=== PATIENT | female | born 1995 | race Caucasian/White ===

== ENCOUNTER → 2017-03-20 21:34 | Emergency (ER) | payer MEDICAID ==
--- NOTE | 2017-03-21 07:34 | RAD ---
HISTORY: Right ankle injury COMPARISONS: None VIEWS: 3, Frontal, lateral, and oblique views of the right ankle FINDINGS: BONE DENSITY: Normal. BONES: There is no displaced fracture. JOINTS: There is no arthropathy. ALIGNMENT: There is no dislocation. SOFT TISSUES: Unremarkable. OTHER FINDINGS: None. IMPRESSION: NO ACUTE OSSEOUS INJURY. IF SYMPTOMS PERSIST, RECOMMEND REPEAT IMAGING.
== END | disposition home or self-care (01) ==
LOC: UCCORT 21:34
DX: S93.401A Sprain of unspecified ligament of right ankle, initial encounter (principal); X58.XXXA Exposure to other specified factors, initial encounter; Y93.9 Activity, unspecified; Y92.9 Unspecified place or not applicable; Y99.9 Unspecified external cause status; Z32.02 Encounter for pregnancy test, result negative
CPT/HCPCS: 84702

== ENCOUNTER 2017-04-27 15:16 | Emergency (ER) | payer OTHER ==
[2017-04-27 15:29] VITALS: BP 108/67
--- NOTE | 2017-04-27 15:34 | UC ---
Respiratory Complaint HPI - HPI Summary HPI Summary: 22 year old female presents with cough and wheezing. - History of Current Complaint Chief Complaint: UCRespiratory Stated Complaint: COUGH Time Seen by Provider: 04/27/17 15:33 Hx Obtained From: Patient Hx Last Menstrual Period: 04/21/17 Onset/Duration: Sudden Onset Severity Initially: Moderate Severity Currently: Moderate - Allergies/Home Medications Allergies/Adverse Reactions: Allergies Allergy/AdvReac Type Severity Reaction Status Date / Time [place] Oil [From [place]] Allergy Hives Verified 04/27/17 15:29 Eggs or Egg-derived Products Allergy See Comment Verified 04/27/17 15:29 Gluten Meal Allergy Unknown Verified 04/27/17 15:29 Reaction Details Peanut Oil Allergy Hives Verified 04/27/17 15:29 Soy Allergy Allergy Unknown Verified 04/27/17 15:29 Reaction Details PMH/Surg Hx/FS Hx/Imm Hx Previously Healthy: Yes - Surgical History Surgical History: Yes Surgery Procedure, Year, and Place: FX R ELBOW SX REPAIR, 09/2014 - Family History Known Family History: Positive: None - Social History Alcohol Use: None Substance Use Type: None Smoking Status (MU): Never Smoked Tobacco Household Exposure Type: Cigarettes - Immunization History Vaccination Up to Date: Yes Review of Systems Constitutional: Negative Skin: Negative Eyes: Negative ENT: Sore Throat, Nasal Discharge, Sinus Congestion, Sinus Pain/Tenderness Respiratory: Cough Cardiovascular: Negative Gastrointestinal: Negative Genitourinary: Negative Motor: Negative Neurovascular: Negative Musculoskeletal: Negative Neurological: Negative Psychological: Negative All Other Systems Reviewed And Are Negative: Yes Physical Exam Triage Information Reviewed: Yes Vital Signs: Initial Vital Signs Temp 37.2 C 04/27/17 15:26 Pulse 83 04/27/17 15:26 Resp 16 04/27/17 15:26 BP 108/67 04/27/17 15:26 Pulse Ox 100 04/27/17 15:26 Vital Signs Reviewed: Yes Eye Exam: Normal ENT Exam: Normal Dental Exam: Normal Neck exam: Normal Neck: Positive: 1 Respiratory: Positive: Rhonchi, Wheezing Cardiovascular Exam: Normal Abdominal Exam: Normal Musculoskeletal Exam: Normal Neurological Exam: Normal Psychological Exam: Normal Skin Exam: Normal UC Diagnostic Evaluation - Laboratory O2 Sat by Pulse Oximetry: 100 Respiratory Course/Dx - Differential Dx/Diagnosis Provider Diagnoses: cough. wheezing Discharge - Discharge Plan Condition: Stable Disposition: HOME Prescriptions: Albuterol HFA INHALER* [Ventolin HFA Inhaler*] 1 puff INH Q6H PRN #1 mdi PRN Reason: Wheezing Azithromyxin NAZARIO (NF) [Z-Nazario (Zithromax) 250 mg tabs #6] 2 tab PO .TODAY, THEN 1 DAILY #6 tab Guaifenesin-Codeine [Cheratussin AC] 1 teasp PO Q8H PRN #120 ml MDD 15 ml PRN Reason: Cough Methylprednisolone [Medrol Dosepak 4 MG*] 4 mg PO .SEE NAZARIO INSTRUCTION #21 tab Patient Education Materials: Acute Cough (ED), Wheezing (ED) Forms: *Work Release Referrals: RADHA Stevens [Primary Care Provider] -
== END 2017-04-27 16:43 | disposition home or self-care (01) ==
LOC: UCCORT 15:16
DX: R05 Cough (principal); R06.2 Wheezing; Z77.22 Contact with and (suspected) exposure to environmental tobacco smoke (acute) (chronic)
CPT/HCPCS: 87502; 99212; G0463

== ENCOUNTER 2018-04-17 15:14 | Emergency (ER) | payer OTHER ==
[2018-04-17 16:28] VITALS: BP 116/68
--- NOTE | 2018-04-17 16:50 | ED ---
Respiratory - HPI Summary HPI Summary: pt presents for evaluation of her headache and body aches. she states that she has been ill since wednesday. she complains of sinus congestion. she denies any sick contact. she is here in the UC with her cousin. she has not taken any tylenol or motrin - History of Current Complaint Chief Complaint: UCRespiratory Stated Complaint: FEVER/BODY ACHES Hx Obtained From: Patient, Family/Electronic Communications Technician Onset/Duration: Gradual Onset Initial Severity: Mild Current Severity: Mild Pain Intensity: 7 Sputum Amount: None Alleviating Factor(s): Nothing - Allergy/Home Medications Allergies/Adverse Reactions: Allergies Allergy/AdvReac Type Severity Reaction Status Date / Time corn Allergy Unknown Hives Verified 04/17/18 16:20 peanut oil Allergy Unknown Hives Verified 04/17/18 16:20 soy Allergy Unknown Hives Verified 04/17/18 16:20 gluten Allergy Hives Verified 04/17/18 16:20 PMH/Surg Hx/FS Hx/Imm Hx Previously Healthy: Yes - Surgical History Surgery Procedure, Year, and Place: FX R ELBOW SX REPAIR, 09/2014 Infectious Disease History: No Infectious Disease History: Denies: Traveled Outside the [place] in Last 30 Days - Family History Known Family History: Positive: None - Social History Alcohol Use: None Substance Use Type: Reports: None Smoking Status (MU): Never Smoked Tobacco Review of Systems Constitutional: Negative Negative: Fever Eyes: Negative ENT: Negative Cardiovascular: Negative Respiratory: Negative Gastrointestinal: Negative Genitourinary: Negative Positive: Arthralgia Skin: Negative Positive: Headache. Negative: Weakness, Paresthesia, Numbness, Syncope Psychological: Normal All Other Systems Reviewed And Are Negative: No Physical Exam Triage Information Reviewed: Yes Vital Signs On Initial Exam: Initial Vitals Temp Pulse Resp BP Pulse Ox 99.2 F 102 21 116/68 99 04/17/18 16:21 04/17/18 16:21 04/17/18 16:21 04/17/18 16:21 04/17/18 16:21 Vital Signs Reviewed: Yes Appearance: Positive: Well-Appearing, No Pain Distress, Well-Nourished Skin: Positive: Warm, Dry Eyes: Positive: Normal, EOMI, WESLEY ENT: Positive: Normal ENT inspection, Hearing grossly normal, Pharynx normal Neck: Positive: Supple, Nontender Respiratory/Lung Sounds: Positive: Clear to Auscultation, Breath Sounds Present Cardiovascular: Positive: Normal, RRR Abdomen Description: Positive: Nontender, Soft Bowel Sounds: Positive: Present Musculoskeletal: Positive: Normal, Strength/ROM Intact Neurological: Positive: Normal, Sensory/Motor Intact, Alert, Oriented to Person Place, Time, CN Intact II-III Psychiatric: Positive: Normal AVPU Assessment: Alert Diagnostics - Vital Signs Vital Signs Temp Pulse Resp BP Pulse Ox 04/17/18 16:21 99.2 F 102 21 116/68 99 - Laboratory Lab Results: Lab Results 04/17/18 Range/Units 16:37 POC Ur Test Negative (Negative) Lab Statement: Any lab studies that have been ordered have been reviewed, and results considered in the medical decision making process. Disposition - Course Course Of Treatment: pt given tylenol, motrin and zofran. test negative. pt encouraged to f/u with pcp regarding what appears to be an enlarged thyroid. - Diagnoses Provider Diagnoses: Viral syndrome Discharge - Sign-Out/Discharge Documenting (check all that apply): Patient Departure All imaging exams completed and their final reports reviewed: No Studies - Discharge Plan Condition: Stable Disposition: HOME Patient Education Materials: Viral Syndrome (ED) Referrals: No Primary Care Phys,NOPCP [Primary Care Provider] - [facility] [Provider Group] Additional Instructions: Please follow up with your primary care physician this week. Please also have your primary care physician check your thyroid. your thyroid is silghtly enlarged. return if worse or any new symptoms. Take tylenol and motrin for headache, pain, or fever. - Billing Disposition and Condition Condition: STABLE Disposition: Home
[2018-04-17] MEDS ORDERED: Ondansetron ODT TAB* 4 MG PO ONE (17:04)
[2018-04-17] MEDS ORDERED: Acetaminophen TAB* 325 MG PO ONE (17:04)
[2018-04-17] MEDS ORDERED: Ibuprofen TAB* 600 MG PO ONE (17:04)
== END 2018-04-17 17:24 | disposition home or self-care (01) ==
LOC: UCCORT 15:14
DX: B34.9 Viral infection, unspecified (principal); Z91.018 Allergy to other foods
CPT/HCPCS: 84702; 99212; A9270-GY; G0463

== ENCOUNTER 2018-11-10 20:14 | Emergency (ER) | payer MEDICAID, OTHER ==
[2018-11-10 20:39] VITALS: BP 112/70
--- NOTE | 2018-11-10 20:43 | UC ---
Throat Pain/Nasal Rory HPI - HPI Summary HPI Summary: 23 yo female with sore throat and otalgia x 2 days hurts to swallow no fever - History of Current Complaint Chief Complaint: UCGeneralIllness Stated Complaint: THROAT/EAR COMPLAINT Time Seen by Provider: 11/10/18 20:42 Hx Obtained From: Patient Hx Last Menstrual Period: irregular Onset/Duration: Gradual Onset Severity: Moderate Pain Intensity: 7 Pain Scale Used: 0-10 Numeric Cough: None Associated Signs & Symptoms: Negative: FB Sensation, Drooling, Wheezing, Hoarseness, Sinus Discomfort, Nasal Discharge, Fever, Vomiting, Rash - Epiglottits Risk Factors Epiglottis Risk Factors: Negative - Allergies/Home Medications Allergies/Adverse Reactions: Allergies Allergy/AdvReac Type Severity Reaction Status Date / Time corn Allergy Unknown Hives Verified 08/29/18 17:26 peanut oil Allergy Unknown Hives Verified 08/29/18 17:26 soy Allergy Unknown Hives Verified 08/29/18 17:26 gluten Allergy Hives Verified 08/29/18 17:26 PMH/Surg Hx/FS Hx/Imm Hx Previously Healthy: Yes - Surgical History Surgical History: Yes Surgery Procedure, Year, and Place: FX R ELBOW SX REPAIR, 09/2014 - Family History Known Family History: Positive: None - Pt denies FMHx Negative: Cardiac Disease, Hypertension, Diabetes - Social History Alcohol Use: None Substance Use Type: None Smoking Status (MU): Never Smoked Tobacco Household Exposure Type: Cigarettes - Immunization History Vaccination Up to Date: Yes Review of Systems All Other Systems Reviewed And Are Negative: Yes Constitutional: Positive: Negative Skin: Positive: Negative Eyes: Positive: Negative ENT: Positive: Sore Throat, Ear Ache Respiratory: Positive: Negative Cardiovascular: Positive: Negative Gastrointestinal: Positive: Negative Genitourinary: Positive: Negative Motor: Positive: Negative Neurovascular: Positive: Negative Musculoskeletal: Positive: Negative Neurological: Positive: Negative Psychological: Positive: Negative Physical Exam Triage Information Reviewed: Yes Appearance: Well-Appearing, No Pain Distress, Well-Nourished Vital Signs: Initial Vital Signs Temp 99.2 F 11/10/18 20:36 Pulse 85 11/10/18 20:36 Resp 20 11/10/18 20:36 BP 112/70 11/10/18 20:36 Pulse Ox 98 11/10/18 20:36 Vital Signs Reviewed: Yes Eyes: Positive: Conjunctiva Clear ENT: Positive: Hearing grossly normal, Tonsillar swelling, Uvula midline. Negative: Nasal congestion, Nasal drainage, Tonsillar exudate, Trismus, Muffled voice, Hoarse voice, Sinus tenderness Neck: Positive: Supple, Nontender, No Lymphadenopathy Respiratory: Positive: Lungs clear, Normal breath sounds, No respiratory distress, No accessory muscle use Cardiovascular: Positive: RRR, No Murmur Musculoskeletal: Positive: ROM Intact, No Edema Neurological: Positive: Alert Psychological Exam: Normal Skin Exam: Normal Diagnostics - Laboratory Lab Results: strep (-) Throat Pain/Nasal Course/Dx - Differential Dx/Diagnosis Provider Diagnosis: Acute tonsillitis Discharge - Sign-Out/Discharge Documenting (check all that apply): Patient Departure All imaging exams completed and their final reports reviewed: No Studies - Discharge Plan Condition: Stable Disposition: HOME Prescriptions: Cephalexin CAP* [Keflex CAP*] 500 mg PO BID #20 cap predniSONE [Prednisone 20 MG TAB] 60 mg PO DAILY #9 tab Patient Education Materials: Tonsillitis (ED) Referrals: RADHA Stevens [Primary Care Provider] - 4 Days (if not better) - Billing Disposition and Condition Condition: STABLE Disposition: Home
[2018-11-10] MEDS ORDERED: Cephalexin CAP* 500 MG PO ONE (21:10)
== END 2018-11-10 21:20 | disposition home or self-care (01) ==
LOC: UCCORT 20:14
DX: J03.90 Acute tonsillitis, unspecified (principal); Z91.09 Other allergy status, other than to drugs and biological substances; Z91.010 Allergy to peanuts; Z91.018 Allergy to other foods
CPT/HCPCS: 87651; 99212; A9270-GY; G0463

== ENCOUNTER 2018-11-19 12:43 | Emergency (ER) | payer OTHER ==
[2018-11-19 12:59] VITALS: BP 120/59
--- NOTE | 2018-11-19 13:12 | UC ---
Upper Extremity HPI - HPI Summary HPI Summary: 23-year-old female presents with complaints of right forearm pain after accidentally hitting her arm on a 2x4 board on her porch. Describes pain as sharp and states it radiates up her arm with any type of movement. She has taken acetaminophen this morning at approximately 6 AM with no relief in the pain. Denies any numbness or tingling. - History of Current Complaint Chief Complaint: UCUpperExtremity Stated Complaint: LEFT ARM INJURY Time Seen by Provider: 11/19/18 12:56 Hx Obtained From: Patient Hx Last Menstrual Period: unknown Pain Intensity: 8 - Allergies/Home Medications Allergies/Adverse Reactions: Allergies Allergy/AdvReac Type Severity Reaction Status Date / Time corn Allergy Unknown Hives Verified 08/29/18 17:26 peanut oil Allergy Unknown Hives Verified 08/29/18 17:26 soy Allergy Unknown Hives Verified 08/29/18 17:26 gluten Allergy Hives Verified 08/29/18 17:26 Home Medications: Home Medications NK [No Home Medications Reported] 11/19/18 [History Confirmed 11/19/18] PMH/Surg Hx/FS Hx/Imm Hx Previously Healthy: Yes - Denies significant PMH - Surgical History Surgical History: Yes Surgery Procedure, Year, and Place: FX R ELBOW SX REPAIR, 09/2014 - Family History Known Family History: Positive: Non-Contributory - Social History Occupation: Employed Full-time Lives: Alone Alcohol Use: None Substance Use Type: None Smoking Status (MU): Never Smoked Tobacco Household Exposure Type: Cigarettes - Immunization History Vaccination Up to Date: Yes Review of Systems All Other Systems Reviewed And Are Negative: Yes Constitutional: Positive: Negative Skin: Negative: Bruising Respiratory: Positive: Negative Cardiovascular: Positive: Negative Gastrointestinal: Positive: Negative Genitourinary: Positive: Negative Motor: Negative: Weakness Neurovascular: Negative: Decreased Sensation Musculoskeletal: Positive: Other: - See HPI Neurological: Positive: Negative Is Patient Immunocompromised?: No Physical Exam - Summary Physical Exam Summary: GENERAL APPEARANCE: Well developed, well nourished, alert and cooperative, and appears to be in no acute distress. CARDIAC: Normal S1 and S2. No S3, S4 or murmurs. Rhythm is regular. There is no peripheral edema, cyanosis or pallor. Extremities are warm and well perfused. Capillary refill is less than 2 seconds. Peripheral pulses intact. LUNGS: Clear to auscultation without rales, rhonchi, wheezing or diminished breath sounds. ABDOMEN: Positive bowel sounds. Soft, nondistended, nontender. No guarding or rebound. No masses or hepatosplenomegally. MUSKULOSKELETAL: Normal muscular development. Normal gait. EXTREMITIES: Reports of severe generalized tenderness of the left forearm with gentle palpation without gross deformity, ecchymosis, or edema. Circulation and sensation intact. SKIN: Skin normal color, texture and turgor with no lesions or eruptions. Triage Information Reviewed: Yes Vital Signs: Initial Vital Signs Temp 99 F 11/19/18 12:54 Pulse 89 11/19/18 12:54 Resp 16 11/19/18 12:54 BP 120/59 11/19/18 12:54 Pulse Ox 100 11/19/18 12:54 Vital Signs Reviewed: Yes Diagnostics - Radiology No standard instances Radiology Interpretation Completed By: Radiologist Summary of Radiographic Findings: Order Information: FOREARM LEFT 2 VWS. Accession Number: [id number]. CPT: 57681. INDICATION: Left forearm injury. TECHNIQUE: 2 views of the left forearm were obtained. FINDINGS: The bones are in normal alignment. No fracture is seen. IMPRESSION: NO EVIDENCE FOR FRACTURE. Upper Extremity Course/Dx - Course Course Of Treatment: 23-year-old female presents with complaints of right forearm pain after accidentally hitting her arm on a 2x4 board on her porch. Describes pain as sharp and states it radiates up her arm with any type of movement. She has taken acetaminophen this morning at approximately 6 AM with no relief in the pain. Denies any numbness or tingling. Afebrile. Vital signs stable. Patient complained of severe generalized pain with gentle palpation to any portion of her right forearm. No gross deformity, ecchymosis, or edema noted. Remainder of exam was unremarkable. X-ray showed no acute fracture or dislocation. Recommending conservative treatment for a right forearm contusion including naproxen 500 mg BID as needed for pain, activity modification, and RICE. She is to follow up with orthopedic surgery in 7 days if no improvement in her symptoms. Anticipatory guidance and warning symptoms reviewed with patient. Verbalizes understanding and agrees with POC. - Differential Dx/Diagnosis Differential Diagnosis/HQI/PQRI: Contusion, Fracture (Closed) Provider Diagnosis: Contusion of left forearm Discharge - Sign-Out/Discharge Documenting (check all that apply): Patient Departure All imaging exams completed and their final reports reviewed: Yes - Discharge Plan Condition: Stable Disposition: HOME Patient Education Materials: Contusion in Adults (ED) Referrals: Vy Andrade [Primary Care Provider] - Caleb Diaz MD [Medical Doctor] - 7 Days (Call for appointment.) Additional Instructions: The x-ray performed in the clinic today showed no evidence of a fracture. I suspect that you have a contusion of the forearm. Rest the arm as much as possible. Avoid heavy lifting and strenuous exercise. Use the sling that was applied in the clinic for the next 2 days for comfort and support. You should remove your arm from the sling every 2 hours while awake and perform gentle range of motion exercises. You may remove the sling to sleep and shower. Apply ice to the affected area for 15-20 minutes at least 4 times a day to help with the pain and swelling. Elevate the arm to help reduce swelling. Take acetaminophen (Tylenol) or ibuprofen (Advil, Motrin) according to directions as needed for pain. Follow up with orthopedic surgery in 7 days if symptoms do not improve. Call for appointment. Seek immediate medical attention if you have severe pain not managed with pain medication, develop numbness or tingling in the hand or fingers, or any worsening of symptoms. - Billing Disposition and Condition Condition: STABLE Disposition: Home
[2018-11-19] MEDS ORDERED: Naproxen TAB* 250 MG PO ONE (13:19)
== END 2018-11-19 14:07 | disposition home or self-care (01) ==
LOC: UCCORT 12:43
DX: S50.12XA Contusion of left forearm, initial encounter (principal); W22.8XXA Striking against or struck by other objects, initial encounter; Y92.008 Other place in unspecified non-institutional (private) residence as the place of occurrence of the external cause
CPT/HCPCS: 84702; 99212; A9270-GY; G0463